=== PATIENT | male | born 1935 | race Caucasian/White ===

== ENCOUNTER 2016-05-09 11:57 | Observation (INO) | payer MEDICARE, BC ==
[~2016-05-09] VITALS: Ht 177.8 cm; Wt 86.4 kg
--- NOTE | ~2016-05-09 | CON ---
PATIENT'S NAME: RENAN MCCARTY [facility] AGE: 81 Y [address] ROOM: [address] [place], [place] [address] LOCATION: [facility] ADMIT DATE: 05/09/2016 Consultation DISCHARGE DATE: FAMILY PHYSICIAN: PHYSICIAN, UNKNOWN ATTENDING PHYSICIAN: JOB WONG DATE OF CONSULTATION: 05/10/2016 REFERRING PHYSICIAN: ROSALIE COREA MD NEUROLOGICAL CONSULTATION REQUESTING PHYSICIAN: The consult was done at the request of Dr. Wong. DATE AND TIME: 05/10/2016 at 12:15 p.m. HISTORY OF PRESENT ILLNESS: This is an 81-year-old male, who was in his usual state of health yesterday morning. He was playing cards with his in their home, when he had a sudden onset of dizziness and lower extremity weakness. Of note, the patient does suffer from hypertension and dementia and was recently started on an Exelon patch. At approximately 9:00 a.m., he was not able to play cards with her at his usual pace and complained of dizziness and unable to get up. He normally ambulates without any assistance. At this point, the called EMS and he was brought to the Emergency Room at [facility]. According to the ER records, he could not speak to the 's understanding. He also stated he just felt very weak and dizzy. Due to his dementia, he did not able to state his medical history or his name or his birthday. His provides some of the medical history and is a good historian. In the emergency room, they did a CT of his head which showed no acute findings. He was admitted to the hospital for further workup. Certainly, the differential of stroke was considered and he has obtained a full stroke workup. At the time of my visit, the patient is sitting in a recliner and has just completed his lunch. He offers no complaints at this time. PAST MEDICAL HISTORY: Includes: Dementia and hypertension. SOCIAL HISTORY: He does have a remote history of heavy drinking, however, he has not had a drink in several years. He has never been a smoker. The patient lives at home with his and she is his primary nail specialist. They live in a one level home with carpeting and no stairs. PATIENT'S NAME: RENAN MCCARTY [facility] AGE: 81 Y [address] ROOM: [address] [place], [place] [address] LOCATION: [facility] ADMIT DATE: 05/09/2016 Consultation DISCHARGE DATE: FAMILY PHYSICIAN: PHYSICIAN, UNKNOWN ATTENDING PHYSICIAN: JOB WONG FAMILY HISTORY: No history of hypertension, diabetes, stroke, or cancer. REVIEW OF SYSTEMS: The patient denies any recent illnesses including gastrointestinal or upper respiratory illnesses. He denies any chest palpitations, chest pain, shortness of breath, or any fluttering feelings in his chest. Denies any recent dizziness except for what has transpired today. Denies any gastrointestinal upset, blood in his stool, or diarrhea. The rest of the 10- point review of systems was conducted and were negative except as mentioned here and in the HPI. PHYSICAL EXAMINATION: VITAL SIGNS: His temperature is 97.5, orally. His pulse is 81, respirations are 12, and blood pressure is 164/90. His oxygen saturations are 93% on room air. He weighs 89.5 kg. LUNGS: Clear to auscultation bilaterally. CARDIOVASCULAR: His heart shows S1 and S2 without murmur, rub, or gallop. ABDOMEN: Soft and nontender with positive bowel sounds throughout. NEUROLOGIC: The NIH Stroke Scale was performed. For level of consciousness, he gets a zero. The current month and age, he does get a 2. The patient was able to open and close eyes for zero, best gaze zero. Visual field testing zero. Facial paresis, zero. Motor function; left arm, zero; motor function right arm, zero; motor function, left leg zero; motor function, right leg zero. Limb ataxia was zero. Sensory, zero. Best language, zero. Dysarthria, zero. Extinction and inattention, zero. For a total score of 2. It is unknown if the patient could perform this testing before this event, however, with his history of dementia, cranial nerves 2 through 12 were intact. The patient's gait was tested and was wide based and fluid. When the patient did stop, he did have some difficulties regaining his balance. LABORATORY DATA AND IMAGING STUDIES: Diagnostics: The patient did have a lipid panel which showed his LDL of 73. MRI brain does show a 1 cm focus of diffusion restriction within the mid posterior left cerebellum consistent with an acute or early subacute ischemic infarct. No hemorrhage or mass effect noted. No other acute findings. He does show chronic, moderate atrophy and fkpa-bd-qhfvytez white matter changes consistent with chronic small-vessel ischemia. No hydrocephalus. Negative orbits and sinuses. The MRA of his head shows no evidence of extra intracranial arterial lesion. No focal vessel cut off. No aneurysm or high- grade stenosis. A focal atherosclerotic calcification at the mid basilar artery does not appear to produce a flow-limiting stenosis. The MRA of the neck shows atherosclerosis present at the carotid bulbs bilaterally, right more prominent than the left. The degree of stenosis is difficult to characterize. However, it is not consistent with high-grade stenosis. We PATIENT'S NAME: RENAN MCCARTY [facility] AGE: 81 Y [address] ROOM: [address] [place], [place] [address] LOCATION: [facility] ADMIT DATE: 05/09/2016 Consultation DISCHARGE DATE: FAMILY PHYSICIAN: PHYSICIAN, UNKNOWN ATTENDING PHYSICIAN: JOB WONG will follow with the carotid Doppler study. Test pending include an echocardiogram and a carotid Doppler study. SUMMARY: This is an 81-year-old male, who came in with dizziness. His MRI does show a small area of ischemia which may or may not have been related to the dizziness, especially with the Exelon patch starting that day. IMPRESSION AND PLAN: 1. Stroke. Start aspirin 81 mg daily. Continue statin medication for LDL of 73. Continue PT, OT, and speech. Discussed with the patient's ambulation issues and using a walker at home for his balance, the patient states he already has a walker at home and will continue doing so. 2. Medication related dizziness. Consider decreasing the dose of the Exelon patch or slowly initiating this medication. The findings were discussed with Dr. Corea. The was given an opportunity to ask questions as well as the patient and they were answered to the best of my ability. We will discuss the case with the Hospitalist regarding the Exelon patch. Thank you for the opportunity to participate in this patient's care. If you have any questions, please do not hesitate to call us. BERRY BERNARD APRN FOR ROSALIE COREA MD PP/njl /[id number] d: 05/10/161951 t: 05/17/16 1604, CONSULTATION REPORT
--- NOTE | ~2016-05-09 | ECHO ---
Transthoracic Echocardiography Report (TTE) Demographics Patient Name RENAN MCCARTY Date of Study 05/10/2016 Patient Number [id number] Visit Number [id number] Date of 1935 Room Number [address] Accession Number [id number] Gender Male Age 81 year(s) Referring [facility] Medical Apparatus Model Maker Juan Smith Physician Maria Elena Morrow T Physician Interpreting Dragan Cruz MD School Year Nanny Physician Supervising Ordering Physician Shawna Coronado MD/KRISTIE REYES Nurse Stress Production Tool Engineer Conclusions Contractility Score Summary Normal Left Ventricular contractility was noted. Summary The estimated left ventricular ejection fraction is 55%. The left ventricle is normal in size . Diastolic assessment reveals Grade I diastolic dysfunction. The interatrial septum appears aneurysmal. Informed consent was obtained, bubble study was done, bubbles crossed to the left atrium suggesting a PFO or ASD. See frame 62. IVC measures 2.53 cm with inspiratory collapse. There is moderate aortic regurgitation by color Doppler. There is moderate aortic stenosis by the Continuity Equation. The peak velocity is 2.75 m/s, the mean gradient is 17 mmHg, and the valve area based on the continuity equation is 1.44 cm2, stroke volume index is 38 ml/m2. The ascending aorta appears mildly dilated. The maximum diameter measures 3.7 cm. Procedure Type of Study TTE procedure:2D Echocardiogram, M-Mode, Doppler , Color Doppler, Contrast study. Procedure Date Date: 05/10/2016 Start: 10:07 AM Study Location: Inpatient Portable Technical Quality: Good visualization Indications:Dizziness and TIA. Appropriate Use Criteria: 9 Patient Status: Routine Contrast Medium: Bubble Study. HR: 75 bpm BP: 144/81 mmHg M-Mode/2D Measurements LV Diastolic Dimension: 5.14 cm LV Systolic Dimension: 3.99 cm LV Septum Diastolic: 0.96 cm LV PW Diastolic: 0.92 cm AO Root Dimension: 2.6 cm Cardiac Output: 5.79 l/min LA Dimension: 3.4 cm LVOT: 2 cm LVOT VTI: 24.6 cm RV Base: 2.99 cm LV Stroke volume: 77.24 ml RV Length: 6.67 cm TAPSE: 1.82 cm TDI-S': 13.8 cm/s Doppler Measurements AV Peak Velocity: 2.75 m/s MV Peak E-Wave: 0.84 m/s AV Peak Gradient: 30.25 mmHg MV Peak A-Wave: 1.05 m/s AV Mean Gradient: 17 mmHg MV E/A Ratio: 0.8 LVOT Peak Velocity: 1.18 m/s MV P1/2t: 59 msec AV P1/2t: 343 msec TR Gradient:23.23 mmHg PV Peak Velocity: 0.93 m/s Estimated RAP:5 mmHg PV Peak Gradient: 3.49 mmHg Estimated RVSP: 28 mmHg Estimated PASP: 28.23 mmHg E' Septal Velocity: 0.05 m/s A' Septal Velocity: 0.1 m/s E' Lateral Velocity: 0.08 m/s A' Lateral Velocity: 0.1 m/s Findings Left Ventricle The left ventricle is normal in size . Diastolic assessment reveals Grade I diastolic dysfunction. Right Ventricle Normal right ventricle structure and function. Left Atrium Normal left atrial size. The interatrial septum appears aneurysmal. Right Atrium Normal right atrial size. Aneurysmal interatrial septum. IVC measures 2.53 cm with inspiratory collapse. Mitral Valve Trivial mitral regurgitation by color Doppler. Aortic Valve The aortic valve is mildly sclerotic. There is moderate aortic regurgitation by color Doppler. There is moderate aortic stenosis by the Continuity Equation. The peak velocity is 2.75 m/s, the mean gradient is 17 mmHg, and the valve area based on the continuity equation is 1.44 cm2, stroke volume index is 38 ml/m2. Tricuspid Valve Trivial tricuspid regurgitation by color Doppler. Pulmonic Valve The pulmonic valve is not well visualized. Pericardial Effusion No evidence of pericardial effusion. Miscellaneous The ascending aorta appears mildly dilated. The maximum diameter measures 3.7 cm. Pleural Effusion No evidence of pleural effusion. Contractility Score LV regional wall motion:(0-Non visualized 1-Normal 2-Hypokinesis 3-Akinesis 4-Dyskinesis 5-Aneurysm) Signature dtt: Anthony Archibald (cardio) dtd: 05/10/16 1007 Physician Self Edit
--- NOTE | ~2016-05-09 | CON ---
PATIENT'S NAME: RENAN MCCARTY [facility] AGE: 81 Y [address] ROOM: [address] [place], [place] [address] LOCATION: [facility] ADMIT DATE: 05/09/2016 Consultation DISCHARGE DATE: FAMILY PHYSICIAN: PHYSICIAN, UNKNOWN ATTENDING PHYSICIAN: JOB MEDRANO REFERRING PHYSICIAN: ROSALIE COLEY MD This is a consult for Dr. Matos. HISTORY OF PRESENT ILLNESS: This 81-year-old gentleman is referred for rehab evaluation, admitted on 05/09/2016 with sudden onset of dizziness, confusion, and feeling of weakness in bilateral lower extremities especially. He normally walks without assistance, and called the squad at that time, and he was brought to emergency room. Of record, he was started on Exelon patch recently, and started his first dose in the morning of the day that he had the symptoms. He had no lightheadedness otherwise. No palpitation. No shortness of breath. No chest pain or pressure. Denied any fever. No cough. No expectoration. No chills. He is forgetful, and that is a well-known fact about him. He has dementia and denied any headache. No double vision. No nausea. No vomiting. He could move bilateral upper and lower extremities, however, at the time, he felt that bilateral lower extremities were weaker. PAST MEDICAL HISTORY: History of probably stroke before about 1 year ago, dementia, hypertension. No diabetes. He has a history of alcohol use in distant past and has abstained for quite some time now. PHYSICAL EXAMINATION: GENERAL: He is at the present time alert, not well oriented to person, time, and place. Sometimes, he is better of with person. He knew his , but he could not remember details about his sons. NEUROLOGIC: Cranial nerves 2 through 12 are within normal limits. His speech is clear, not wet, and he can see well. He is able to swallow both solids and fluids, and his speech is clear, and tongue and soft palate are moving symmetrical. He has good bowel and bladder control. Neurologically intact otherwise, but he is unsteady if he is up and around. He can walk up to 150 feet with a front-wheeled walker and minimum assistance to stabilize, but if he stops and brings his feet together, he is unsteady. MEDICATIONS: He is on the following medications: 1. Apresoline. 2. Lipitor. 3. Aspirin. PATIENT'S NAME: RENAN MCCARTY [facility] AGE: 81 Y [address] ROOM: [address] [place], [place] [address] LOCATION: [facility] ADMIT DATE: 05/09/2016 Consultation DISCHARGE DATE: FAMILY PHYSICIAN: PHYSICIAN, UNKNOWN ATTENDING PHYSICIAN: JOB MEDRANO 4. Heparin. 5. Zofran. 6. NaCl. 7. KCl. ASSESSMENT AND PLAN: I think this gentleman is doing well. I have advised him not to drink, and I have advised him not to drive also. However, at the present time, I feel that he could be okay if he goes home and has the resources to be taking care of. However, if he is not, then we will wait until we have an opening, and we will take him to rehab unit for about 10 days of intensive rehabilitation. All the above was discussed with his in detail. She verbalized understanding and in agreement. MD HILARY RIOS/juan josé /[id number] d: 05/10/16 1853 t: 05/11/16 1352, CONSULTATION REPORT
--- NOTE | ~2016-05-09 | HP ---
PATIENT'S NAME: RENAN MCCARTY [facility] AGE: 81 Y [address] ROOM: [address] [place], [place] [address] LOCATION: [facility] ADMIT DATE: 05/09/2016 History & Physical DISCHARGE DATE: FAMILY PHYSICIAN: PHYSICIAN, UNKNOWN ATTENDING PHYSICIAN: JOB MEDRANO DATE OF SERVICE: CHIEF COMPLAINT: Dizziness. HISTORY OF PRESENT ILLNESS: This is an 81-year-old male, history of hypertension, dementia who is brought to the emergency room by squad for complaints of sudden onset, changes in mental status, dizziness, and bilateral to lower extremity weakness. Report is that was playing cards with him this morning at around 9:00 a.m. She normally does, but however according to her, he normally plays cards very well and is able to beat her, but this particular morning, he was off, did not look like his own self, and complained of some dizziness and was also unable to get up and use his legs. The patient normally ambulates without any assistance. At this point, the patient's called the squad and he was brought to the emergency room. Of note, the patient was started on an Exelon patch and took his first dose this morning. Otherwise, the patient denies any dizziness, lightheadedness, right now, lying comfortably in bed. No chest pain, palpitations, or shortness of breath. No complaints of unilateral weakness. The patient is at baseline, awake and alert, but not oriented to time. PAST MEDICAL HISTORY: 1. Dementia. 2. Hypertension. SOCIAL HISTORY: The patient has a remote history of heavy drinking; however, has not had a drink in several years now. No history of smoking. The patient lives at home with and she is his primary teacher adult education. FAMILY HISTORY: No history of hypertension, diabetes, stroke, cancer reported. REVIEW OF SYSTEMS: A 10-point review of systems was conducted and were all negative except as mentioned in the HPI. PHYSICAL EXAMINATION: VITAL SIGNS: Blood pressure 175/88, pulse 95, respiratory rate 20, PATIENT'S NAME: RENAN MCCARTY [facility] AGE: 81 Y [address] ROOM: [address] [place], [place] [address] LOCATION: [facility] ADMIT DATE: 05/09/2016 History & Physical DISCHARGE DATE: FAMILY PHYSICIAN: PHYSICIAN, UNKNOWN ATTENDING PHYSICIAN: JOB MEDRANO temperature 97.5, saturating 98% on room air. GENERAL: The patient is awake, alert, and oriented x2 at baseline mental status. In no apparent distress. HEENT: Dry mucous membranes, but no scleral icterus or conjunctival pallor noted. SKIN: Without rash or lesions. HEART: S1, S2. Regular rate and rhythm. LUNGS: Clear to auscultation bilaterally. ABDOMEN: Soft, nontender, nondistended. Positive bowel sounds. MUSCULOSKELETAL: No joint swelling or redness noted. Full active and passive range of motion in all 4 extremities. NEURO: No nystagmus. No focal neurological deficits elicited. LABORATORY DATA: Reviewed. CT scan without contrast unremarkable. ASSESSMENT AND PLAN: 1. Dizziness, acute onset. Rule out posterior stroke. CT scan of the head without contrast, negative. We will get an MRI, MRA of the head and neck to look at posterior circulation primarily. Of note, the patient was started on an Exelon patch this morning and acute onset of his dizziness could perhaps coincide with that. I will hold the Exelon patch at this point. I will have PT and OT evaluate the patient in the morning as well. 2. Dementia. Juticksq-ek-txndaj. We will hold an Exelon patch as above since it is known to cause dizziness. 3. Hypertension. We will hold blood pressure medication including metoprolol 25 mg daily. The patient is allowed for permissive hypertension. 4. Deep venous thrombosis prophylaxis. We will use heparin 5000 units b.i.d. MD JONY MAXWELL/juan josé /[id number] D: T: [id number] HISTORY & PHYSICAL
--- NOTE | ~2016-05-09 | ER ---
PATIENT'S NAME: RENAN MCCARTY [facility] AGE: 81 Y [address] ROOM: [place] [address] LOCATION: [facility] ADMIT DATE: 05/09/2016 ER/Outpatient Report DISCHARGE DATE: FAMILY PHYSICIAN: PHYSICIAN, UNKNOWN ATTENDING PHYSICIAN: JOB WONG Time of Arrival: 1157 hours. Time of Evaluation: 1157 hours. CHIEF COMPLAINT: Shaking. HISTORY OF PRESENT ILLNESS: The patient arrived per EMS [facility] with IV in place. The patient's reports that he ate breakfast this morning, and they were playing cards today, and she said he just started complaining of being extremely dizzy. He went to stand up she said, and he was just shaking all over, and she could not understand what he was trying to say. By the time he got to the ER, he says he feels very weak and very dizzy, but he is not a good historian. He is not able to tell us past medical history, name of his physician. He is not able to state his birthday. states he was fine yesterday. He has not had any recent illnesses. He has not been complaining of chest pain. He has not been short of breath. He has not had any change in his bowel or bladder pattern. ALLERGIES: NO KNOWN ALLERGIES. CURRENT MEDICATIONS: On his chart and reviewed by me. PAST MEDICAL HISTORY: Dementia, hypertension, anxiety, alcohol abuse, arthritis. PAST SURGICAL HISTORY: Include tonsillectomy and vasectomy. SOCIAL HISTORY: Lives with his in their own home. REVIEW OF SYSTEMS: All negative other than those mentioned in the HPI. PHYSICAL EXAMINATION: VITAL SIGNS: He weighs 91 kg, blood pressure 212/130, pulse of 93, PATIENT'S NAME: RENAN MCCARTY [facility] AGE: 81 Y [address] ROOM: [place] [address] LOCATION: [facility] ADMIT DATE: 05/09/2016 ER/Outpatient Report DISCHARGE DATE: FAMILY PHYSICIAN: PHYSICIAN, UNKNOWN ATTENDING PHYSICIAN: JOB WONG respirations 18, temperature of 96.7, O2 saturation is 97% on room air. GENERAL: The patient is awake and alert. He is able to state his name but does not know his birthday or his age. Able to state that he has been dizzy and having generalized weakness. He has no facial drooping. No weakness of one side. HEENT: Pupils are equal and reactive to light. Nasal is clear. Oropharynx is clear. NECK: Supple. No lymphadenopathy. LUNGS: Lung sounds are clear throughout. HEART: Regular rate and rhythm. ABDOMEN: Soft and nondistended. Bowel sounds are present. EMERGENCY DEPARTMENT COURSE: The patient was placed on the monitor shows a sinus rhythm. Lab work was done. CBC is within normal limits. Chem panel shows sodium of 140 potassium of 3.1, chloride of 105, glucose was 137, BUN was 11, with a creatinine of 1.3. CPK is 119, CK-MB is 2.4, with a troponin of less than 0.040. EKG shows sinus rhythm. CT of the head was completed. Radiologist reports no acute abnormalities. The patient's blood pressure did come down. Dr. Wong was contacted regarding the patient. The patient is to be placed in observation for new onset dizziness. IMPRESSION: Dizziness, weakness. PLAN: The patient will be placed in observation with Dr. Wong. verbalized understanding. PERCY WAGGONER APRN FOR MD FLORENCE GUZMÁN/juan josé /[id number] d: 05/09/167 t: 05/23/16 1730, OUTPATIENT REPORT
[~2016-05-09 11:57] MED LIST changes: -ASPIRIN (CHILDR81 MG PO; -LIPITOR20 M1 PO; -TOPROL XL25 MG PO
[2016-05-09 12:39] LABS: BASOPHIL # 0.1 K/uL (0.0-0.2); BASOPHIL % 0.9 %; EOSINOPHIL # 0.4 K/uL (0.0-0.5); EOSINOPHIL % 3.4 %; HEMATOCRIT 50.1 % (33.0-50.0); HEMOGLOBIN 17.3 g/dL (11.0-16.0); IMMATURE GRANULOCYTE % 0.3 %; LYMPHOCYTE # 3.2 K/uL (0.8-4.0); LYMPHOCYTE % 27.3 %; MCH 30.8 pg (27.0-34.0); MCHC 34.5 gm/dL (32.0-36.5); MCV 89.3 fl (83.0-98.0); MONOCYTE # 0.9 K/uL (0.0-1.0); MONOCYTE % 7.8 %; MPV 9.3 fl (9.4-12.4); NEUTROPHIL % 60.3 %; NRBC % 0 /100WBC (0-0.00); PLATELET COUNT 297 K/uL (150-450); RBC 5.61 M/uL (3.50-5.50); RDW-CV 12.5 % (11.9-14.6); WBC 11.6 K/uL (4.0-11.0)
[2016-05-09 12:51] LABS: INR - (THERAPEUTIC) 1.1 (0.9-1.1); PROTIME 11.1 SECONDS (9.6-11.1); PTT 24 SECONDS (25-32)
[2016-05-09 12:59] LABS: ALBUMIN 3.8 gm/dL (3.5-5.0); ALK PHOS 83 IU/L (33-138); ALT 23 IU/L (12-78); ANION GAP 20.1 (10.0-19.0); AST 20 IU/L (10-40); BLOOD UREA NITROGEN 11 mg/dL (6-24); CALCIUM 8.8 mg/dL (8.5-10.5); CHLORIDE 105 mMol/L (96-110); CO2 18 mMol/L (22-32); CPK 119 IU/L (35-332); CREATININE 1.3 mg/dL (0.6-1.3); ESTIMATED GFR (MDRD EQUATION) 53; MAGNESIUM 1.8 mg/dL (1.3-2.6); POTASSIUM 3.1 mMol/L (3.7-5.1); SODIUM 140 mMol/L (135-145); TOTAL BILIRUBIN 1.6 mg/dL (0.0-1.5); TOTAL PROTEIN 7.4 g/dL (6.0-8.4)
[2016-05-09] MEDS ORDERED: TOPROL XL25 MG PO (15:20)
--- NOTE | 2016-05-09 16:20 | NUR ---
81 Y/O MALE ADMITTED FOR DIZZINESS. NO KNOWN MEDICATION ALLERGIES. PT IS ORIENTED TO PERSON BUT NOT TIME OR PLACE. MEDICAL & SURGICAL HISTORY - RHINOPLAST, TONSILS, VASECTOMY, DENTAL IMPLANTS. 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 PT DID START ON A NEW MEDICATION TODAY AND WENT OFF OF ANOTHER ONE WELL. REPORT GIVEN TO STEPHON ESTRADA, PT PRIMARY CARE NURSE ADM EDUCATION COMPLETED BUT WILL NEED TO BE REINFORCED FREQUENTLY
--- NOTE | 2016-05-09 17:20 | NUR ---
Significant Event: A/O X1-2, forgetful, 1 assist/gait belt - unsteady gait, BLE shakey when up and at rest in bed. voids per toilet. small clear emesis upon arrival to [facility]. @ bedside, to MRI this afternoon. poor historian. saline lock R)Wrist. Follow up: bed alarms at all times,
--- NOTE | 2016-05-10 04:04 | NUR ---
Significant Event: The Patient is Alert and Oriented x1- Self. Forgetful of place and month. NIHSS 2. Forgetful and has trouble word finding. No complaints of pain. VSS. On room air. PIV to the Right Forearm saline locked. The patient is impulsive and pulls at things at times. Pupils are equal and reactive. He is in a High Low bed. Up with 1-2 Assist, gaitbelt and walker. Follow up: MRI/MRA NECK this am
--- NOTE | 2016-05-10 12:23 | NUR ---
Introduced self and care management services to patient. Lives in [place] with , hoping to go home later today. Denies concerns about going home on discharge, says he and his take care of each other. Will follow and assist with dc planning as needs identified.
--- NOTE | 2016-05-10 12:26 | NUR ---
Significant Event: Patient is Alert and Oriented X 1-2. Oriented to self and sometimes place. Forgetfall. Reports no pain. 1 assist with gait belt and walker.Up to restroom to void. IV right forearm saline locked. Puils equal and reactive. NIHSS 1. High-low bed. VS on room air. at bedside.
--- NOTE | 2016-05-11 02:35 | NUR ---
Significant Event: Alert to self. Aggetated and uncooperative at start of shift. Haldol IM was given x1. Pt able to sleep fairly well throughout the night. Third assesment pt was calm and cooperative with cares. NIHSS 2 due to disorientation. Up 1 assist GB. On tele box. Pt has order if continues to pull tele off to just leave it off but we were able to get it back on after haldol was given. RA lungs clear. VSS. Regular diet. Last BM 05/10. No IV access. No complaints of pain. at bedside. Follow up: Discharge home today?
[2016-05-11 04:46] LABS: BASOPHIL # 0.1 K/uL (0.0-0.2); BASOPHIL % 0.8 %; EOSINOPHIL # 0.2 K/uL (0.0-0.5); EOSINOPHIL % 2.2 %; HEMOGLOBIN 16.3 g/dL (11.0-16.0); IMMATURE GRANULOCYTE % 0.3 %; LYMPHOCYTE # 2.2 K/uL (0.8-4.0); LYMPHOCYTE % 21.5 %; MCV 91.4 fl (83.0-98.0); MONOCYTE # 1.1 K/uL (0.0-1.0); MONOCYTE % 10.6 %; MPV 9.6 fl (9.4-12.4); NEUTROPHIL # (ANC) 6.5 K/uL (1.4-9.0); NEUTROPHIL % 64.6 %; NRBC % 0 /100WBC (0-0.00); RBC 5.25 M/uL (3.50-5.50); RDW-CV 12.8 % (11.9-14.6); WBC 10.1 K/uL (4.0-11.0)
[2016-05-11 04:51] LABS: PLATELET COUNT 226 K/uL (150-450)
[2016-05-11 05:01] LABS: ANION GAP 11.9 (10.0-19.0); CALCIUM 8.8 mg/dL (8.5-10.5); CREATININE 1.2 mg/dL (0.6-1.3); MAGNESIUM 2.3 mg/dL (1.3-2.6); POTASSIUM 3.9 mMol/L (3.7-5.1)
--- NOTE | 2016-05-11 10:41 | NUR ---
Significant Event: Patient alert to seld, , and place. Follows commands. Denies N/T. Equal strength throughout. Denies headache and dizziness. VSS. No edema noted. Room air with sats in the mid 90s. LS clear and diminished. Voids per toilet. BS active X4. Large BM this shift. No IV access. 1 assist with gaitbelt. at bedside. Good appetite. Dimissing home today. Follow up:
[2016-05-11] MEDS ORDERED: LIPITOR20 M1 PO (10:43)
[2016-05-11] MEDS ORDERED: ASPIRIN (CHILDR81 MG PO (10:43)
== END 2016-05-11 11:20 | disposition disaster alternative care site (69) ==
LOC: GMED 11:57 → GNTU 13:59
PROVIDERS: Emergency Medicine; Hospitalist; ADMIT Internal Medicine
DX: I63.9 Cerebral infarction, unspecified (principal); I65.23 Occlusion and stenosis of bilateral carotid arteries; F03.90 Unspecified dementia, unspecified severity, without behavioral disturbance, psychotic disturbance, mood disturbance, and anxiety; I10 Essential (primary) hypertension; Z79.899 Other long term (current) drug therapy; Z79.82 Long term (current) use of aspirin
CPT/HCPCS: G0378; G8978; G8979; G8980; G8987; G8988; G8989; G9162; G9163; G9164; J1630; J1644; J2405

== ENCOUNTER → 2016-05-09 | Outpatient (CLI) | payer MEDICARE, BC ==
[~2016-05-09] MED LIST: ASPIRIN (CHILDR81 MG PO; BYSTOLIC10 MG PO; LIPITOR20 M1 PO; RIVASTIGMINE6 MG PO; THERAGRAN-M1 TAB PO; TOPROL XL25 MG PO; TYLENOL/COD#31 TAB PO; VITAMIN D1000 UNIT PO; XANAX0.25 MG PO
== END | disposition disaster alternative care site (69) ==
LOC: GAMB 11:35
DX: I10 Essential (primary) hypertension (principal); R56.9 Unspecified convulsions; Z79.899 Other long term (current) drug therapy
CPT/HCPCS: A0422; A0425; A0427